=== PATIENT | female | born 1995 | race Caucasian/White ===

== ENCOUNTER 2024-11-26 16:06 | Emergency (ER) | payer OTHER ==
[~2024-11-26] VITALS: Ht 167.6 cm; Wt 76.0 kg
[2024-11-26 16:31] VITALS: RESP 16; TEMP 37; O2SAT 100
[2024-11-26 17:05] LABS: BASOPHILS % 0.4 % (0.0-2.0); EOSINOPHILS % 3.3 % (0.0-5.0); HEMATOCRIT. 38.4 % (36.0-48.0); HEMOGLOBIN. 12.9 g/dL (12.0-16.0); LYMPHOCYTES % 23.2 % (20.0-50.0); MEAN PLATELET VOLUME 7.0 fl (7.4-10.4); MONOCYTES % 7.1 % (2.0-8.0); NEUTROPHILS % 66.0 % (40.0-76.0); PLATELET 308 x1000/uL (130-400); RED BLOOD CELL COUNT 4.42 mill/uL (4.2-5.4); RED CELL DISTRIBUTION WIDTH 13.3 % (11.6-14.6)
[2024-11-26 17:16] LABS: UCG SCREEN NEGATIVE
[2024-11-26 17:17] LABS: UCG KIT LOT# 946166
[2024-11-26 17:18] LABS: CLARITY URINE CLEAR (CLEAR); COLOR URINE YELLOW (YELLOW); SPECIFIC GRAVITY URINE 1.031 (1.005-1.030)
[2024-11-26 17:19] LABS: GLUCOSE URINE NEGATIVE (NEGATIVE); KETONES URINE TRACE (NEGATIVE); NITRITE URINE NEGATIVE (NEGATIVE); OCCULT BLOOD URINE NEGATIVE (NEGATIVE); PH URINE 7.5 (4.5-8.0); PROTEIN URINE TRACE (NEGATIVE); UROBILINOGEN URINE 1.0 E.U./dL (0.2-1.0)
[2024-11-26 17:20] LABS: LEUKOCYTE ESTERASE URINE 1+ (NEGATIVE)
[2024-11-26 17:23] LABS: BACTERIA URINE TRACE; RBC URINE 0-2 /hpf (0-2); SQUAMOUS EPITHELIAL CELL URINE FEW /lpf (RARE/1+)
[2024-11-26 17:30] LABS: CREATININE 1.2 mg/dL (0.6-1.0); UREA NITROGEN BLOOD 17.0 mg/dL (9-23)
[2024-11-26] MEDS ORDERED: IBUP-2028 MT (21:27)
[2024-11-26] MEDS ORDERED: TOPUD PO (21:27)
[2024-11-26] MEDS: KETOROLAC 30MG/ML VIAL IM ONE (21:53)
[2024-11-26] MEDS: ACETAMINOPHEN 325MG TABLET PO ONE (21:53)
[2024-11-26 21:56] VITALS: BP 116/65; PULSE 80; O2SAT 99
== END 2024-11-26 21:58 | disposition home or self-care (01) ==
LOC: ER 16:06
DX: K55.069 Acute infarction of intestine, part and extent unspecified (principal); R10.31 Right lower quadrant pain; Z97.5 Presence of (intrauterine) contraceptive device
CPT/HCPCS: 80048; 81003; 81025; 85025; 36415; 74176; 76830; 76856; 96372; 99285; J1885; Z7610